=== PATIENT | female | born 1965 | race Caucasian/White ===

== ENCOUNTER 2021-11-28 15:50 | Inpatient (IN) | payer OTHER ==
[~2021-11-28] VITALS: Ht 160 cm; Wt 125.9 kg
[2021-11-28] MEDS ORDERED: FUROSEMIDE 100 MG/10ML VIAL IV ONE (17:15)
[2021-11-28 17:32] LABS: Basophils # (auto) 0 10 ^3/uL (0-0.2); Basophils % (auto) 0.6 % (0.0-2.0); Eosinophils # (auto) 0.3 10 ^3/uL (0-0.8); Eosinophils % (auto) 4.3 % (0.0-7.0); Hematocrit 39.8 % (36.0-46.0); Hemoglobin 12.5 g/dL (12.2-16.2); Lymphocytes # (auto) 0.8 10 ^3/uL (0.4-5.4); Lymphocytes % (auto) 11.2 % (10.0-50.0); Mean Corpuscular Hemoglobin 27.9 pg (28.0-32.0); Mean Corpuscular Hgb Conc. 31.5 g/dL (32.0-36.0); Mean Corpuscular Volume 88.6 fL (80.0-100.0); Monocytes # (auto) 0.7 10 ^3/uL (0-1.3); Monocytes % (auto) 9.7 % (0.0-12.0); Neutrophils # (auto) 5.1 10 ^3/uL (1.6-8.6); Neutrophils % (auto) 74.2 % (37.0-80.0); Red Cell Distribution Width 15.8 % (11.8-14.3); White Blood Cell 6.9 10^3/uL (4.4-10.8)
[2021-11-28 17:50] LABS: Potassium 4.6 mmol/L (3.5-5.1)
[2021-11-28 17:59] LABS: BUN/Creatinine Ratio 20.3; Bilirubin, Total 0.4 mg/dL (0.2-1.0); Calcium 8.5 mg/dL (8.5-10.1); Total Protein 6.9 g/dL (6.4-8.2)
[2021-11-28] MEDS ORDERED: TEMAZEPAM 15 MG CAP PO PRN (22:15)
[2021-11-28] MEDS ORDERED: NITROGLYCERIN 0.4 MG SL TAB SL PRN (22:15)
[2021-11-28] MEDS ORDERED: ONDANSETRON HCL 4 MG/2 ML VIAL IV PRN (22:15)
[2021-11-28] MEDS ORDERED: DEXTROSE (50%) 50ML SYRG IV PRN (22:15)
[2021-11-28] MEDS ORDERED: AZITHROMYCIN 500MG/ 250ML 250 ML IV ONE (22:15)
[2021-11-29] MEDS: InsuLIN REG 1unit/0.01ml Soln (100units/ml) SC SCH ×4 (07:00→22:48)
[2021-11-29] MEDS: ACCU-CHEK COMFORT CURVE STRIP VI SCH ×4 (07:00→22:39)
[2021-11-29] MEDS: LEVOTHYROXINE SODIUM 100 MCG TAB PO SCH (07:00)
[2021-11-29 08:01] LABS: Basophils # (auto) 0 10 ^3/uL (0-0.2); Basophils % (auto) 0.7 % (0.0-2.0); Eosinophils # (auto) 0.3 10 ^3/uL (0-0.8); Eosinophils % (auto) 5.5 % (0.0-7.0); Hematocrit 39.2 % (36.0-46.0); Hemoglobin 12.6 g/dL (12.2-16.2); Lymphocytes # (auto) 0.7 10 ^3/uL (0.4-5.4); Lymphocytes % (auto) 11.7 % (10.0-50.0); Mean Corpuscular Hemoglobin 28.7 pg (28.0-32.0); Mean Corpuscular Hgb Conc. 32.1 g/dL (32.0-36.0); Mean Corpuscular Volume 89.4 fL (80.0-100.0); Monocytes # (auto) 0.7 10 ^3/uL (0-1.3); Monocytes % (auto) 10.9 % (0.0-12.0); Neutrophils # (auto) 4.5 10 ^3/uL (1.6-8.6); Neutrophils % (auto) 71.2 % (37.0-80.0); Nucleated Red Blood Cells % 0.1 %; Red Blood Cells 4.38 10^6/uL (4.0-5.20); Red Cell Distribution Width 16.1 % (11.8-14.3); White Blood Cell 6.3 10^3/uL (4.4-10.8)
[2021-11-29] MEDS: FUROSEMIDE 20 MG/2 ML VIAL IV SCH ×2 (08:14→18:20)
[2021-11-29 08:15] LABS: Albumin 2.9 g/dL (3.4-5.0); Calcium 8.3 mg/dL (8.5-10.1); Potassium 4.4 mmol/L (3.5-5.1)
[2021-11-29 08:20] LABS: BUN/Creatinine Ratio 20.5; Bilirubin, Total 0.5 mg/dL (0.2-1.0); Total Protein 6.8 g/dL (6.4-8.2)
[2021-11-29] MEDS ORDERED: FUROSEMIDE 40 MG TAB PO SCH (10:00)
[2021-11-29] MEDS: CARVEDILOL 12.5 MG TAB PO SCH ×2 (10:09→22:38)
[2021-11-29] MEDS: AZITHROMYCIN 500MG/ 250ML 250 ML IV SCH (10:09)
[2021-11-29] MEDS: PANTOPRAZOLE 40 MG TAB PO SCH (10:10)
[2021-11-29] MEDS: ENOXAPARIN SOD 40 MG/0.4 ML SYRINGE SC SCH (10:10)
[2021-11-29] MEDS: amLODIPine BESYLATE 5 MG TAB PO SCH (10:10)
[2021-11-29] MEDS ORDERED: AMLO-496 PO (10:45)
[2021-11-29] MEDS ORDERED: INSU1INJ13 SC (10:45)
[2021-11-29] MEDS ORDERED: ALBU108A5 INH (10:45)
[2021-11-29] MEDS ORDERED: ATOR40TA52 PO (10:45)
[2021-11-29] MEDS ORDERED: LEVO100T8 PO (10:45)
[2021-11-29] MEDS ORDERED: LOSA100T25 PO (10:45)
[2021-11-29] MEDS ORDERED: CARV12.544 PO (10:45)
[2021-11-29] MEDS ORDERED: FUR20T PO (10:45)
[2021-11-29] MEDS: ACETAMINOPHEN 325 MG TAB PO PRN (18:34)
[2021-11-29 19:25] VITALS: BP 119/58
[2021-11-29] MEDS: ATORVASTATIN 20 MG TAB PO SCH (22:39)
[2021-11-29 22:48] VITALS: BP 148/79
[2021-11-30] MEDS ORDERED: guaiFENesin-DM 100/10mg/5ml SYR PO PRN (01:45)
[2021-11-30] MEDS ORDERED: IPRATROPIUM BROM 0.5 MG/2.5ML INH SOL NEB PRN (02:00)
[2021-11-30] MEDS ORDERED: ALBUTEROL SULF 2.5 MG/0.5ML(0.5%) NEB SOLN NEB PRN (02:00)
[2021-11-30] MEDS ORDERED: cefTRIAXone 1GM/50ML D5W 50 ML IV ONE (03:00)
[2021-11-30 04:06] LABS: Urine Bacteria FEW /hpf (None Seen); Urine Blood Negative /uL (Negative); Urine Hyaline Cast FEW /lpf (0 - 2); Urine Specific Gravity 1.009 (1.001-1.035); Urine WBC 38 /hpf (0 - 5); Urine WBC Clumps PRESENT /hpf (None Seen)
[2021-11-30 05:37] VITALS: BP 139/71
[2021-11-30 05:49] LABS: Calcium 8.1 mg/dL (8.5-10.1); Potassium 4.1 mmol/L (3.5-5.1)
[2021-11-30 05:52] LABS: BUN/Creatinine Ratio 20.6
[2021-11-30] MEDS: FUROSEMIDE 20 MG/2 ML VIAL IV SCH ×2 (06:02→18:01)
[2021-11-30] MEDS: LEVOTHYROXINE SODIUM 100 MCG TAB PO SCH (06:02)
[2021-11-30] MEDS: ACCU-CHEK COMFORT CURVE STRIP VI SCH ×4 (06:33→22:43)
[2021-11-30] MEDS: InsuLIN REG 1unit/0.01ml Soln (100units/ml) SC SCH ×4 (06:33→22:42)
[2021-11-30 09:00] VITALS: BP 146/74
[2021-11-30] MEDS: CARVEDILOL 12.5 MG TAB PO SCH ×2 (09:01→22:41)
[2021-11-30] MEDS: AZITHROMYCIN 500MG/ 250ML 250 ML IV SCH (09:01)
[2021-11-30] MEDS: amLODIPine BESYLATE 5 MG TAB PO SCH (09:02)
[2021-11-30] MEDS: PANTOPRAZOLE 40 MG TAB PO SCH (09:02)
[2021-11-30] MEDS: ENOXAPARIN SOD 40 MG/0.4 ML SYRINGE SC SCH (09:03)
[2021-11-30] MEDS: ACETAMINOPHEN 325 MG TAB PO PRN ×2 (09:03→15:43)
[2021-11-30 15:20] VITALS: BP 117/65
[2021-11-30] MEDS ORDERED: LEVO125T7 PO (16:39)
[2021-11-30] MEDS ORDERED: LOSA100T25 PO (16:46)
[2021-11-30 17:00] VITALS: BP 118/55
[2021-11-30 22:00] VITALS: BP 141/79
[2021-11-30] MEDS: ATORVASTATIN 20 MG TAB PO SCH (22:43)
[2021-12-01 05:02] VITALS: BP 146/74
[2021-12-01] MEDS: InsuLIN REG 1unit/0.01ml Soln (100units/ml) SC SCH ×4 (06:48→22:19)
[2021-12-01] MEDS: LEVOTHYROXINE SODIUM 100 MCG TAB PO SCH (06:49)
[2021-12-01] MEDS: FUROSEMIDE 20 MG/2 ML VIAL IV SCH ×2 (06:49→18:00)
[2021-12-01] MEDS: ACCU-CHEK COMFORT CURVE STRIP VI SCH ×4 (06:49→22:12)
[2021-12-01 08:35] VITALS: BP 145/85
[2021-12-01] MEDS: cefTRIAXone 1GM/50ML D5W 50 ML IV SCH (09:08)
[2021-12-01] MEDS: amLODIPine BESYLATE 5 MG TAB PO SCH (09:08)
[2021-12-01] MEDS: PANTOPRAZOLE 40 MG TAB PO SCH (09:09)
[2021-12-01] MEDS: ENOXAPARIN SOD 40 MG/0.4 ML SYRINGE SC SCH (09:09)
[2021-12-01] MEDS: CARVEDILOL 12.5 MG TAB PO SCH ×2 (09:11→13:05)
[2021-12-01 12:06] LABS: Calcium 8.6 mg/dL (8.5-10.1)
[2021-12-01 12:08] LABS: BUN/Creatinine Ratio 22.1
[2021-12-01] MEDS: AZITHROMYCIN 500MG/ 250ML 250 ML IV SCH (12:29)
[2021-12-01 12:51] VITALS: BP 139/85
[2021-12-01] MEDS: ACETAMINOPHEN 325 MG TAB PO PRN ×2 (14:35→22:20)
[2021-12-01] MEDS ORDERED: methylPREDNISolone SOD SUCC 40 MG/ML VL IV ONE (16:30)
[2021-12-01 16:41] VITALS: BP 132/70
[2021-12-01 22:00] VITALS: BP 139/83
[2021-12-01] MEDS: methylPREDNISolone SOD SUCC 40 MG/ML VL IV SCH (22:12)
[2021-12-01] MEDS: ATORVASTATIN 20 MG TAB PO SCH (22:12)
[2021-12-01] MEDS: INSULIN LANTUS (GLARGINE) 1 /0.01ml (100units/ml) SC SCH (22:18)
[2021-12-02 05:00] VITALS: BP 153/101
[2021-12-02] MEDS: LEVOTHYROXINE SODIUM 100 MCG TAB PO SCH (06:39)
[2021-12-02] MEDS: ACCU-CHEK COMFORT CURVE STRIP VI SCH ×4 (06:39→21:58)
[2021-12-02] MEDS: FUROSEMIDE 20 MG/2 ML VIAL IV SCH ×2 (06:39→18:00)
[2021-12-02] MEDS: InsuLIN REG 1unit/0.01ml Soln (100units/ml) SC SCH ×4 (06:44→21:57)
[2021-12-02 06:45] LABS: Basophils # (auto) 0 10 ^3/uL (0-0.2); Basophils % (auto) 0.6 % (0.0-2.0); Eosinophils # (auto) 0 10 ^3/uL (0-0.8); Eosinophils % (auto) 0.2 % (0.0-7.0); Hematocrit 40.1 % (36.0-46.0); Lymphocytes # (auto) 0.2 10 ^3/uL (0.4-5.4); Mean Corpuscular Hemoglobin 28.3 pg (28.0-32.0); Mean Corpuscular Hgb Conc. 32.4 g/dL (32.0-36.0); Mean Corpuscular Volume 87.3 fL (80.0-100.0); Monocytes # (auto) 0.1 10 ^3/uL (0-1.3); Monocytes % (auto) 1.5 % (0.0-12.0); Neutrophils # (auto) 4.3 10 ^3/uL (1.6-8.6); Neutrophils % (auto) 92.7 % (37.0-80.0); Red Blood Cells 4.59 10^6/uL (4.0-5.20); Red Cell Distribution Width 15.8 % (11.8-14.3); White Blood Cell 4.6 10^3/uL (4.4-10.8)
[2021-12-02 07:01] LABS: BUN/Creatinine Ratio 20.5; Potassium 4.6 mmol/L (3.5-5.1)
[2021-12-02 09:00] VITALS: BP 153/88
[2021-12-02] MEDS: cefTRIAXone 1GM/50ML D5W 50 ML IV SCH ×2 (10:03→12:55)
[2021-12-02] MEDS: methylPREDNISolone SOD SUCC 40 MG/ML VL IV SCH ×2 (10:03→21:58)
[2021-12-02] MEDS: amLODIPine BESYLATE 5 MG TAB PO SCH (10:10)
[2021-12-02] MEDS: PANTOPRAZOLE 40 MG TAB PO SCH (10:12)
[2021-12-02] MEDS: CARVEDILOL 12.5 MG TAB PO SCH ×2 (10:12→21:58)
[2021-12-02] MEDS: AZITHROMYCIN 500MG/ 250ML 250 ML IV SCH ×2 (10:12→12:54)
[2021-12-02] MEDS: ENOXAPARIN SOD 40 MG/0.4 ML SYRINGE SC SCH (10:13)
[2021-12-02 13:00] VITALS: BP 166/89
[2021-12-02] MEDS ORDERED: DOXY-286 PO (13:25)
[2021-12-02] MEDS ORDERED: PRED20TA2 PO (13:25)
[2021-12-02] MEDS ORDERED: DEXT1SYP9 PO (13:25)
[2021-12-02] MEDS ORDERED: CHOL20007 PO (13:44)
[2021-12-02] MEDS: ACETAMINOPHEN 325 MG TAB PO PRN ×2 (15:15→22:29)
[2021-12-02 17:00] VITALS: BP 161/95
[2021-12-02 17:11] VITALS: BP 161/95
[2021-12-02] MEDS: INSULIN LANTUS (GLARGINE) 1 /0.01ml (100units/ml) SC SCH (21:58)
[2021-12-02] MEDS: ATORVASTATIN 20 MG TAB PO SCH (21:58)
[2021-12-02 22:00] VITALS: BP 147/78
[2021-12-03 05:20] VITALS: BP 141/88
[2021-12-03] MEDS: FUROSEMIDE 20 MG/2 ML VIAL IV SCH ×2 (06:00→16:23)
[2021-12-03] MEDS: LEVOTHYROXINE SODIUM 100 MCG TAB PO SCH (06:48)
[2021-12-03] MEDS: InsuLIN REG 1unit/0.01ml Soln (100units/ml) SC SCH ×4 (06:49→22:00)
[2021-12-03] MEDS: ACCU-CHEK COMFORT CURVE STRIP VI SCH ×4 (06:49→21:40)
[2021-12-03 09:00] VITALS: BP 155/94
[2021-12-03] MEDS: ENOXAPARIN SOD 40 MG/0.4 ML SYRINGE SC SCH (09:31)
[2021-12-03] MEDS: AZITHROMYCIN 500MG/ 250ML 250 ML IV SCH (09:31)
[2021-12-03] MEDS: cefTRIAXone 1GM/50ML D5W 50 ML IV SCH (09:31)
[2021-12-03] MEDS: methylPREDNISolone SOD SUCC 40 MG/ML VL IV SCH ×2 (09:32→21:39)
[2021-12-03] MEDS: PANTOPRAZOLE 40 MG TAB PO SCH (09:32)
[2021-12-03] MEDS: amLODIPine BESYLATE 5 MG TAB PO SCH (09:33)
[2021-12-03] MEDS: CARVEDILOL 12.5 MG TAB PO SCH ×2 (09:33→21:41)
[2021-12-03 13:00] VITALS: BP 160/90
[2021-12-03] MEDS: ACETAMINOPHEN 325 MG TAB PO PRN ×2 (15:54→22:07)
[2021-12-03 17:00] VITALS: BP 154/87
[2021-12-03] MEDS ORDERED: InsuLIN REG 1unit/0.01ml Soln (100units/ml) IV ONE (18:30)
[2021-12-03] MEDS: ATORVASTATIN 20 MG TAB PO SCH (21:39)
[2021-12-03 22:00] VITALS: BP 148/87
[2021-12-03] MEDS ORDERED: INSULIN LANTUS (GLARGINE) 1 /0.01ml (100units/ml) SC SCH (22:00)
[2021-12-04 04:46] VITALS: BP 148/87
[2021-12-04] MEDS: LEVOTHYROXINE SODIUM 100 MCG TAB PO SCH (07:05)
[2021-12-04] MEDS: ACCU-CHEK COMFORT CURVE STRIP VI SCH (07:05)
[2021-12-04] MEDS: InsuLIN REG 1unit/0.01ml Soln (100units/ml) SC SCH (07:05)
[2021-12-04] MEDS: FUROSEMIDE 20 MG/2 ML VIAL IV SCH (07:06)
[2021-12-04 09:00] VITALS: BP 187/104
[2021-12-04] MEDS: ENOXAPARIN SOD 40 MG/0.4 ML SYRINGE SC SCH (10:00)
[2021-12-04] MEDS: AZITHROMYCIN 500MG/ 250ML 250 ML IV SCH (10:25)
[2021-12-04] MEDS: methylPREDNISolone SOD SUCC 40 MG/ML VL IV SCH (10:25)
[2021-12-04] MEDS: PANTOPRAZOLE 40 MG TAB PO SCH (10:26)
[2021-12-04] MEDS: amLODIPine BESYLATE 5 MG TAB PO SCH (10:26)
[2021-12-04] MEDS: CARVEDILOL 12.5 MG TAB PO SCH (10:27)
== END 2021-12-04 12:32 | disposition home or self-care (01) | DRG 193 ==
LOC: ER 15:59 → TELE 22:06 → TELE-EAST 11-29 15:00
PROVIDERS: ADMIT Nurse Practitioner; ATTEND Internal Medicine
PROC: 5A09357 Assistance with Respiratory Ventilation, Less than 24 Consecutive Hours, Continuous Positive Airway Pressure (ICD-10-PCS; principal; 2021-12-01)
PROC: 5A09357 Assistance with Respiratory Ventilation, Less than 24 Consecutive Hours, Continuous Positive Airway Pressure (ICD-10-PCS; 2021-12-03)
DX: J18.9 Pneumonia, unspecified organism (principal); I50.33 Acute on chronic diastolic (congestive) heart failure; N17.0 Acute kidney failure with tubular necrosis; J96.21 Acute and chronic respiratory failure with hypoxia; J96.22 Acute and chronic respiratory failure with hypercapnia; J45.901 Unspecified asthma with (acute) exacerbation; I13.0 Hypertensive heart and chronic kidney disease with heart failure and stage 1 through stage 4 chronic kidney disease, or unspecified chronic kidney disease; Z68.42 Body mass index [BMI] 45.0-49.9, adult; E03.9 Hypothyroidism, unspecified; E11.22 Type 2 diabetes mellitus with diabetic chronic kidney disease; E66.01 Morbid (severe) obesity due to excess calories; E88.09 Other disorders of plasma-protein metabolism, not elsewhere classified; G47.33 Obstructive sleep apnea (adult) (pediatric); N18.9 Chronic kidney disease, unspecified; E78.5 Hyperlipidemia, unspecified; E55.9 Vitamin D deficiency, unspecified; Z20.822 Contact with and (suspected) exposure to COVID-19; Z88.5 Allergy status to narcotic agent
CPT/HCPCS: 36415; 36600; 71045; 80048; 80053; 80061; 81001; 82306; 82728; 82805; 82962; 83036; 83605; 83880; 84443; 84484; 85025; 85379; 87040; 87086; 87426; 93005; 93306; 93970; 94640; 94660; 96365; 96367; 96375; G0378; J0696; J1815